=== PATIENT | male | born 2000 | race Caucasian/White ===

== ENCOUNTER → 2021-10-19 15:45 | Outpatient (CLI) | payer BC, SELFPAY | PROVIDERS: PCP Family Medicine; Visit Provider Family Medicine | DX: R06.81 Apnea, not elsewhere classified (principal); G47.10 Hypersomnia, unspecified; R06.83 Snoring; E66.01 Morbid (severe) obesity due to excess calories | CPT/HCPCS: G0399 ==

== ENCOUNTER 2023-09-05 11:31 | Emergency (ER) | payer BC, SELFPAY ==
[2023-09-05 11:31] VITALS: BP 145/92; PULSE 103; RESP 16; TEMP 36.6; O2SAT 98; BMI 46.2
--- NOTE | 2023-09-05 11:52 | EXP.UTC ---
Discharge Plan Disposition Patient Disposition: Home, Self-Care Condition: Good Prescriptions Prescriptions: New ondansetron 4 mg Tablet,Disintegrating 4 mg PO Q8H PRN (Reason: Nausea) Qty: 12 0RF Referrals Follow up/Referrals: Lele Armendariz MD [Primary Care Provider] - See instructions Activity Restrictions/Add. Instructions Additional Instructions/Restrictions: Drink plenty of fluids. Take the medications as directed. Follow up with your regular doctor. GO TO THE ER FOR ANY WORSENING SYMPTOMS Clinical Impressions Clinical Impression: Gastroenteritis Instructions Patient Instructions: Viral Gastroenteritis, DI for Viral Gastroenteritis -- Adult, Ondansetron Discharge ED Provider: Sky Bejarano [facility] General Stated complaint: abd pain, diarrhea Mode of Arrival: Ambulatory Source of Information: Patient Limitations: No Limitations Time Seen by Provider: 09/05/23 11:52 Description of Symptoms (Recalled from Triage Doc. by RN): Patient reports diarrhea for 3 days. HEENT Symptoms (Recalled from RN notes): No Resp Symptoms (Recalled from RN notes): No Skin Symptoms (Recalled from RN notes): No MS Symptoms (Recalled from RN notes): No Functional Status (Recalled from RN notes): wnl History of Present Illness Provider Complaint: He states that for the past 2 days he has had n/v/d. He denies any fever, cough and congestion. Related Data Previous Rx's Medication Instructions Recorded ondansetron 4 mg disintegrating 4 mg PO Q8H PRN Nausea #12 tabs 09/05/23 tablet Allergies Allergy/AdvReac Type Severity Reaction Status Date / Time guaifenesin [From Robitussin] Allergy Verified 09/05/23 11:51 Worker's Comp Is this a Worker's Comp case?: No [facility] Disclaimer: The information contained in this section may have been updated after the patient was seen, as this information can be updated by other users. Social History Smoking Status: Never smoker alcohol intake: never current occupational status: employed Travel in the last 8 weeks: None ROS Obtained: Yes All systems reviewed & no additional complaints except as documented Constitutional Constitutional: Denies chills, Denies fever(s) and Reports poor appetite ENT Ears, Nose, Mouth, and Throat: Denies dizziness and Denies sore throat Cardiovascular Cardiovascular: Denies dyspnea Respiratory Respiratory: Denies chest congestion, Denies cough and Denies dyspnea Gastrointestinal Gastrointestingal: Reports as per HPI, cramping, diarrhea, nausea and vomiting; Denies abdominal pain Musculoskeletal Musculoskeletal: Denies arthralgias Integumentary/Breasts Skin/Breast: Denies rash Neurologic Neurologic: Denies dizziness Physical Exam General General appearance: alert and in no apparent distress Head Head exam: atraumatic and normocephalic Eye Eye exam: Present normal appearance, PERRL and EOMI ENT ENT exam: Present normal exam, normal oropharynx, mucous membranes moist, TM's normal bilaterally and normal external ear exam Neck Neck exam: Present normal inspection, full ROM and trachea midline; Absent tenderness, meningismus or lymphadenopathy Chest Chest inspection: Present normal inspection and symmetric chest wall rise; Absent tenderness, rash or abscess Respiratory Respiratory exam: Present normal lung sounds bilaterally; Absent respiratory distress, wheezes or stridor Cardiovascular Cardiovascular exam: Present regular rate and normal rhythm; Absent irregular rhythm, systolic murmur, diastolic murmur or JVD Abdominal Exam Abdominal exam: Present soft and hyperactive bowel sounds; Absent distention, tenderness, guarding, rebound, rigidity, psoas sign, obturator sign, heel tap sign, Gonzalez's sign, Rovsing's sign or tenderness at McBurney's Point Extremities Exam Extremities exam: Present normal inspection and full ROM; Absent tenderness Back Exam Back exam: Present normal inspection and full ROM; Absent tenderness, C
[2023-09-05 12:16] VITALS: BP 145/92; PULSE 103; RESP 16; TEMP 36.6; O2SAT 98
== END 2023-09-05 12:18 | disposition home or self-care (01) ==
PROVIDERS: Emergency Provider Nurse Practitioner Family; PCP Family Medicine
DX: A08.4 Viral intestinal infection, unspecified (principal); R10.9 Unspecified abdominal pain; R19.7 Diarrhea, unspecified; R11.2 Nausea with vomiting, unspecified
CPT/HCPCS: 99204; 99212; G0463

== ENCOUNTER 2023-12-09 14:05 | Emergency (ER) | payer BC, SELFPAY ==
[2023-12-09 14:20] VITALS: BP 141/90; PULSE 96; RESP 18; TEMP 36.7; O2SAT 100; BMI 50.2
--- NOTE | 2023-12-09 14:22 | EXP.UTC ---
Discharge Plan Disposition Patient Disposition: Home, Self-Care Condition: Good Prescriptions Prescriptions: New azithromycin [Zithromax] 250 mg tablet 250 mg PO UD DOSE PK Qty: 6 0RF Rx Instructions: Take two (2) tablets today, then one (1) tablet days #2 thru #5 [id number] [Bromfed DM] 2-30-10 mg/5 mL Syrup 5 ml PO Q6H PRN (Reason: Cough) Qty: 240 0RF methylprednisolone 4 mg Tablets,Dose Pack 4 mg PO DIRECTED 6 Days Qty: 21 0RF Rx Instructions: Take 1 pack as directed for 6 days Referrals Follow up/Referrals: Lele Armendariz MD [Primary Care Provider] - See instructions Activity Restrictions/Add. Instructions Additional Instructions/Restrictions: Drink plenty of fluids. Take tylenol or ibuprofen for pain or fever. Take the medications as directed. Follow up with your regular doctor. GO TO THE ER FOR ANY WORSENING SYMPTOMS Clinical Impressions Clinical Impression: Bronchitis, Acute viral syndrome Stand Alone Forms Stand Alone Forms: Work/School Release Instructions Patient Instructions: DI for Acute Bronchitis, DI for Viral Syndrome Discharge ED Provider: Sky Bejarano [facility] [place] General Stated complaint: fever,chills,cough, body aches Time Seen by Provider: 12/09/23 14:22 History of Present Illness Provider Complaint: He states that for the past 2 days he has had fever/chills/body aches, cough, chest congestion, and malaise. Related Data Previous Rx's Medication Instructions Recorded azithromycin 250 mg tablet 250 mg PO UD DOSE PK #6 tabs 12/09/23 (Zithromax) [id number]-[id number]-[id number] 5 ml PO Q6H PRN Cough #240 mL 12/09/23 2 mg-30 mg-10 mg/5 mL oral syrup (Bromfed DM) methylprednisolone 4 mg tablets in 4 mg PO DIRECTED 6 days #21 tabs 12/09/23 a dose pack Allergies Allergy/AdvReac Type Severity Reaction Status Date / Time guaifenesin [From Robitussin] Allergy Verified 09/05/23 11:51 [facility] Disclaimer: The information contained in this section may have been updated after the patient was seen, as this information can be updated by other users. Surgical History (Updated 12/09/23 @ 14:35 by Lydia Snyder RN) History of tonsillectomy Social History (Updated 09/05/23 @ 12:16 by Sky Bejarano APRN) Smoking Status: Never smoker alcohol intake: never current occupational status: employed Travel in the last 8 weeks: None ROS Obtained: Yes All systems reviewed & no additional complaints except as documented Constitutional Constitutional: Reports chills and Reports fever(s) Eyes Eyes: Denies eye discharge ENT Ears, Nose, Mouth, and Throat: Reports as per HPI Cardiovascular Cardiovascular: Denies chest pain Respiratory Respiratory: Denies chest congestion and Reports cough Gastrointestinal Gastrointestingal: Reports nausea; Denies abdominal pain, constipation, cramping, diarrhea or vomiting Musculoskeletal Musculoskeletal: Denies arthralgias Integumentary/Breasts Skin/Breast: Denies rash Neurologic Neurologic: Denies paresthesias Physical Exam General General appearance: alert and in no apparent distress Eye Eye exam: Present normal appearance, PERRL and EOMI ENT ENT exam: Present mucous membranes moist and normal external ear exam Expanded ENT Exam External ear exam: Present normal external inspection TM/Canal exam: Bilateral TM: erythema and bulging Nose exam: Absent sinus tenderness Nasal speculum exam: Bilateral: normal Mouth exam: Present normal external inspection; Absent drooling Teeth exam: Present normal inspection Throat exam: Present tonsillar erythema and tonsillomegaly Neck Neck exam: Present normal inspection, full ROM and trachea midline; Absent tenderness, lymphadenopathy or thyromegaly Chest Chest inspection: Present normal inspection and symmetric chest wall rise; Absent tenderness or rash Respiratory Respiratory exam: Present normal lung sounds bilaterally; Absent respiratory distress, wheezes, stridor or accessory muscle use Cardiovascular Cardiovascular exam: Present regular rate, normal rhythm and normal heart sounds Abdominal Exam Abdominal exam: Present soft; Absent distention, tenderness, guarding, rebound or rigidity Extremities Exam Extremities exam: Present normal inspection, full ROM and normal capillary refill; Absent tenderness or calf tenderness Back Exam Back exam: Present normal inspection and full ROM; Absent tenderness Neurological Exam Neurological exam: Present alert and oriented X3 Psychiatric Psychiatric exam: Present normal affect and normal mood Skin Skin exam: Present warm, dry, intact and normal color Lymphatic Lymphatic Findings: no adenopathy Medical Decision Making Medical Records Medical records reviewed: No I reviewed the patient's medical records. Rashid Inquiry Pt receiving controlled substance: No Lab Data Lab results reviewed: Yes I reviewed the patient's lab results.
[2023-12-09 14:56] VITALS: BP 141/90; PULSE 96; RESP 18; TEMP 36.7; O2SAT 100
[2023-12-09 14:57] LABS: UTC Strep Screen (Rapid) Negative (Negative)
[2023-12-09 14:58] LABS: UTC Influenza A Antigen Negative (Negative); UTC Influenza B Antigen Negative (Negative)
== END 2023-12-09 15:00 | disposition home or self-care (01) ==
PROVIDERS: Emergency Provider Nurse Practitioner Family; PCP Family Medicine
DX: J20.9 Acute bronchitis, unspecified (principal); R50.9 Fever, unspecified; R05.9 Cough, unspecified; R09.81 Nasal congestion; B34.9 Viral infection, unspecified
CPT/HCPCS: 87804; 87880; 99212; 99214; G0463

== ENCOUNTER 2025-01-03 07:30 | Outpatient (CLI) | payer BC, SELFPAY ==
[2025-01-03 13:07] LABS: Basophils # 0.1 K/mm3 (0-0.2); Basophils % 0.8 % (0.1-2.0); Eosinophils # 0.2 Kmm3 (0.0-0.4); Eosinophils % 3.1 % (0.1-12.0); Hematocrit 46.6 % (42.0-52.0); Hemoglobin 15.5 g/dL (14.1-18.0); Lymphocytes # 1.8 K/mm3 (0.7-4.5); Lymphocytes % 29.1 % (10-50); Mean Corpuscular HGB Conc 33.3 g/dL (31.8-35.4); Mean Corpuscular Hemoglobin 29.2 pg (27.0-31.2); Mean Corpuscular Volume 87.9 fl (80-94); Mean Platelet Volume 10.3 fl (7.4-10.4); Monocytes # 0.5 K/mm3 (0.1-1.0); Monocytes % 8.7 % (1.7-9.3); Neutrophils # 3.6 K/mm3 (1.8-7.8); Nucleated Red Blood Cells # 0 10^3/uL; Nucleated Red Blood Cells % 0 %; Platelet Count 321 K/mm3 (142-424); Red Cell Distribution Width 12.7 % (11.5-17.5); Red Cell Distribution Width-SD 40.7 fL; White Blood Count 6.1 K/mm3 (4.8-10.8)
[2025-01-03 13:37] LABS: Alanine Aminotransferase 25 U/L (12-78); Albumin Level 3.9 g/dl (3.5-5.0); Albumin/Globulin Ratio 1.4 (1.1-1.8); Alkaline Phosphatase 73 U/L (38-126); Anion Gap 10.5 mEq/L (5-15); Aspartate Amino Transferase 25 U/L (17-59); Bilirubin,Total 0.9 mg/dl (0.2-1.3); Blood Urea Nitrogen 16 mg/dl (9-20); Calcium 8.8 mg/dl (8.4-10.2); Carbon Dioxide 29 mmol/L (22.0-30.0); Chloride 104 mmol/L (98-107); Chol/HDL Ratio 3.9 (1-3.5); Cholesterol 122 mg/dl (140-200); Estimated Glomerular Filt Rate 102 ml/min (>60); GFR (African American) 123 ML/MIN (>60); Globulin 2.7 g/dL (1.3-3.2); Glucose 79 mg/dl (74-100); HDL Cholesterol 31 mg/dl (40-60); Potassium 4.5 mmoL/L (3.5-5.1); Sodium 139 mmol/L (136-145); Total Protein,Serum 6.6 g/dl (6.3-8.2); Triglycerides 94 mg/dl (30-150); VLDL Cholesterol 19 mg/dL (0-40)
[2025-01-03 13:48] LABS: Direct LDL Cholesterol 63.05 mg/dL (100-129)
[2025-01-03 13:56] LABS: Free T4 (Free Thyroxine) 1.22 ng/dl (0.78-2.19)
[2025-01-03 14:10] LABS: Thyroid Stimulating Hormone 1.11 uIU/mL (0.465-4.68)
[2025-01-03 14:18] LABS: HIV Combo NEGATIVE (Negative)
[2025-01-03 14:26] LABS: Hepatitis C Ab Qual. W/ RFX NEGATIVE (Negative)
== END 2025-01-03 23:59 | disposition home or self-care (01) ==
LOC: LAB.DROPOF 01-04 07:30
PROVIDERS: PCP Internal Medicine; Visit Provider Internal Medicine
DX: Z00.00 Encounter for general adult medical examination without abnormal findings (principal); R53.83 Other fatigue; Z11.4 Encounter for screening for human immunodeficiency virus [HIV]; Z13.1 Encounter for screening for diabetes mellitus; Z13.29 Encounter for screening for other suspected endocrine disorder; Z11.59 Encounter for screening for other viral diseases; Z13.220 Encounter for screening for lipoid disorders
CPT/HCPCS: 80053; 80061; 83036; 84403; 84439; 84443; 85025; 86803; 87389

== ENCOUNTER 2025-01-13 10:58 | Outpatient (CLI) | payer BC, SELFPAY ==
--- NOTE | 2025-01-13 11:00 | US_ITS ---
FINAL REPORT TECHNIQUE: Sonographic images of the right upper quadrant were obtained. CLINICAL HISTORY: Suspected hernia superior to umbilicus COMPARISON: None FINDINGS: ULTRASOUND PERIUMBILICAL AREA: Ultrasound examination of the periumbilical area was identified for a possible periumbilical hernia. No focal fluid collection or large hernia is identified. There is some shadowing in the area, that may be related to the rectus muscle itself, however a small hernia is not excluded. Recommend CT examination for further evaluation. IMPRESSION: No focal fluid collection or large hernias identified. Recommend CT examination as described. Reviewed, Interpreted and Dictated by Cindy Roque MD Transcribed by Robyn Xie Authenticated and [facility]
== END 2025-01-13 23:59 | disposition home or self-care (01) ==
LOC: RAD 10:58
PROVIDERS: PCP Internal Medicine; Visit Provider Internal Medicine
DX: K43.9 Ventral hernia without obstruction or gangrene (principal)
CPT/HCPCS: 76705

== ENCOUNTER 2025-03-26 08:34 | Outpatient (CLI) | payer BC, SELFPAY ==
--- OUTSIDE RECORDS SUMMARY | 2025-03-26 08:37 | XMS_ITS | Clinical Summary ---
Author Organization [facility] Address [address] [place], [place] [id number] Phone [email or web address] Care Team Providers Care Manager Office Services Name Role Phone Lele Armendariz MD Primary Care Provider [phone] Allergies Active Allergy Reactions Criticality Noted Date Comments Guaifenesin Other (see comments) Low 02/16/2022 As child Medications escitalopram (LEXAPRO) 20 MG tablet Take 20 mg by mouth 1 (one) time each day. 01/16/2022 Active Vitamin D, Cholecalciferol, 25 MCG (1000 UT) tablet Take by mouth. Active Active Problems No known active problems Social History Tobacco Use Types Packs/Day Years Used Date Smoking Tobacco: Former E-Cigarettes Smokeless Tobacco: Never Intimate Partner Violence Answer Date R ecorded Insults You Not on file 07/05/2021 Threatens You Not on file 07/05/2021 Screams at You Not on file 07/05/2021 Physically Hurt Not on file 07/05/2021 Intimate Partner Violence Score Not on file 07/05/2021 Depression Answer Date Recorded PHQ Total Score Not on file 03/19/2023 Stress Answer Date Recorded Stress in your Life Not on file 07/17/2024 Dealing with Stress 3 07/17/2024 Sex and Gender Information Value Date Recorded Sex Assigned at Not on file Legal Sex Male 3:24 PM CDT Gender Identity Not on file Sexual Orientation Not on file Last Filed Vital Signs Vital Sign Reading Time Taken Comments Blood Pressure 129/84 03/18/2022 11:03 PM EDT Pulse 85 03/18/2022 11:03 PM EDT Temperature 36.3 C (97.3 F) 03/18/2022 11:03 PM EDT Respiratory Rate 16 03/18/2022 11:03 PM EDT Oxygen Saturation 97% 03/18/2022 11:03 PM EDT Inhaled Oxygen Concentration - - Weight 166 kg (366 lb 11.2 oz) 02/16/2022 9:39 P M EDT Height 188 cm (6' 2 ) 02/16/2022 9:39 PM EDT Body Mass Index 47.08 02/16/2022 9:39 PM EDT Plan of Treatment Health Maintenance Due Date Last Done Comments Dental Cleaning/Exam 1998 HIV Screening 1998 Hepatitis C Screening 1998 Hepatitis B Immunization (3 of 3 - 3-dose series) 09/24/1999 07/30/1999, 1998 Tetanus Diphtheria and Pertussis Immunization (6 - Tdap) 2009 07/23/2002, 11/02/1999, 01/22/1999, Additional history exists HPV Immunization (1 - Male 3-dose series) 2013 Hep B Infection Screening - Triple Screen 2016 Annual Preventive Exam 07/05/2022 07/05/2021 Covid-19 Immunization (1 - season) 2024 Influenza Immunization (#1) 2025 07/27/2020, 1 Varicella Immunization Aged Out 07/30/1999 No lo nger eligible based on patient's age to complete this topic HIB Immunization Completed 03/24/2000, , 1998, Additional history exists Polio Immunization Completed 07/23/2002, 0 11/02/1999, 1998, Additional history exists Hepatitis A Immunization Aged Out No longer eligible based on patient's age to complete this topic Pneumococcal: Ped (0 to 5 Yrs) and At-Risk Member (6 to 64 Yrs) Aged Out No longer eligible based on patient's age to complete this topic Insurance OPT OUT NO COPAY NB Care Teams Manager Office Services Relationship Specialty Start Date End Date Lele Armendariz MD [address] [facility] [address] [place] [address] PCP - General Gis Instructor 02/16/22
--- NOTE | 2025-03-26 08:45 | CT_ITS ---
FINAL REPORT TECHNIQUE: Axial CT images of the abdomen were obtained with IV contrast only. Coronal reformatted images were also obtained. This study was performed with techniques to keep radiation doses as low as reasonably achievable (ALARA). Individualized dose reduction techniques using automated exposure control or adjustment of mA and/or kV according to the patient''s size were employed. CLINICAL HISTORY: Abd pain, findings on US - possible small umbilical hernia COMPARISON: Ultrasound 01/13/2025 FINDINGS: The solid organs are negative. The gallbladder is unremarkable. The bowel is unremarkable. There is a tiny umbilical hernia containing fat. There is associated abdominal wall defect measures 4 mm. The herniated fat measures up to 12 mm in diameter. There is no associated bowel. The appendix is normal. IMPRESSION: Tiny fat containing umbilical hernia. Reviewed, Interpreted and Dictated by Beth Cannon MD Transcribed by Dora Saavedra Authenticated and . [facility]
[2025-03-26] MEDS: IOPAMIDOL-370 (76%);100ML BOTTLE 75 ML IV (09:32)
[2025-03-26] MEDS: SODIUM CHLORIDE 0.9% 10ML SYR (RAD ONLY) 10 ML IV (09:32)
== END 2025-03-26 23:59 | disposition home or self-care (01) ==
LOC: RAD 08:34
PROVIDERS: PCP Internal Medicine; Visit Provider Internal Medicine
DX: K42.9 Umbilical hernia without obstruction or gangrene (principal); K43.9 Ventral hernia without obstruction or gangrene
CPT/HCPCS: 74160; Q9967